=== PATIENT | female | born 1955 | race Caucasian/White ===

== ENCOUNTER 2023-04-15 08:14 | Outpatient (CLI) | payer MEDICARE, OTHER ==
[2023-04-15 14:22] LABS: BASOPHILS # (AUTO) 0.1 10^3/uL (0.0-0.1); BASOPHILS % (AUTO) 1.3 %; EOSINOPHILS # (AUTO) 0.3 10^3/uL (0.0-0.7); EOSINOPHILS % (AUTO) 4.6 %; HCT - HEMATOCRIT 40.5 % (37.0-47.0); LYMPHOCYTES # (AUTO) 1.8 10^3/uL (1.5-3.5); LYMPHOCYTES % (AUTO) 29.2 %; MEAN CORPUSCULAR HEMOGLOBIN 31.6 pg (27.0-31.0); MEAN CORPUSCULAR HGB CONC 32.1 g/dL (32.0-36.0); MEAN CORPUSCULAR VOLUME 98.3 fL (81.0-99.0); MEAN PLATELET VOLUME 9.7 fL (7.9-10.8); MONOCYTES # (AUTO) 0.6 10^3/uL (0.0-1.0); MONOCYTES % (AUTO) 10.2 %; NEUTROPHILS # (AUTO) 3.3 10^3/uL (1.5-6.6); NEUTROPHILS % (AUTO) 54.4 %; PLT - PLATELET COUNT 355 10^3/uL (130-450); RED BLOOD COUNT 4.12 10^6/uL (4.20-5.40); RED CELL DISTRIBUTION WIDTH 12.4 % (12.0-15.0); WHITE BLOOD COUNT 6.1 x10^3/uL (4.8-10.8)
[2023-04-15 16:08] LABS: ALBUMIN 4.3 g/dL (3.2-5.5); ALBUMIN/GLOBULIN RATIO 1.4 (1.0-2.2); ALKALINE PHOSPHATASE 79 IU/L (42-121); ALT ALANINE AMINOTRANSFERASE 4 IU/L (10-60); AST ASPARTATE AMINOTRANSFERASE 17 IU/L (10-42); BILIRUBIN,TOTAL 0.5 mg/dL (0.2-1.0); BUN - BLOOD UREA NITROGEN 20 mg/dL (6-20); CALCIUM 9.6 mg/dL (8.5-10.3); CARBON DIOXIDE - CO2 30 mmol/L (21-32); CHLORIDE 102 mmol/L (101-111); CHOL/HDL RATIO 3.9 (<4.4); CHOLESTEROL 210 mg/dL; CREATININE 0.8 mg/dL (0.6-1.3); GFR - MDRD 71 (>89); GLUCOSE 114 mg/dL (74-104); HDL CHOLESTEROL 54 mg/dL; LDL CHOLESTEROL,CALCULATED 128 mg/dL; LDL/HDL RATIO 2.4 (<4.4); POTASSIUM 3.9 mmol/L (3.5-4.5); SODIUM 138 mmol/L (135-145); TOTAL PROTEIN 7.3 g/dL (6.4-8.9); TRIGLYCERIDES 138 mg/dL (48-352); VLDL CHOLESTEROL 28 mg/dL
[2023-04-15 17:09] LABS: THYROID STIMULATING HORMONE 1.31 uIU/mL (0.34-5.60)
[2023-04-15 17:34] LABS: ESTIMATED AVERAGE GLUCOSE 111 mg/dL (70-100); HEMOGLOBIN A1c% 5.5 % (4.27-6.07)
== END 2023-04-15 08:15 | disposition home or self-care (01) ==
LOC: LAB.S 08:14
PROVIDERS: ATTEND Physician Assistant Medical
DX: Z13.9 Encounter for screening, unspecified (principal)
CPT/HCPCS: 36415; 80053; 80061; 83036; 83721; 84443; 85025

== ENCOUNTER 2023-12-02 13:31 | Outpatient (CLI) | payer MEDICARE, OTHER ==
--- NOTE | 2023-12-02 19:15 | Ultrasound Report ---
PROCEDURE: Extremity Soft Tissue Limited INDICATIONS: RIGHT HAND PAIN TECHNIQUE: Real-time scanning was performed of the right hand, with image documentation. COMPARISON: None. Findings and impression: At the area of clinical concern and palpable abnormality, there is a 5 x 2 x 4 mm structure with vasc ularity possibly superficial thrombophlebitis. Differential includes a soft tissue lesion. Clinical f ollowup is recommended. If there is new or worsening clinical concern, surveillance imaging could be obtained. Reviewed by: Brian Condon MD on 12/02/2023 7:13 PM PDT Approved by: Brian Condon MD on 12/02/2023 7:13 PM PDT Station ID: [id number]
== END 2023-12-02 13:32 | disposition home or self-care (01) ==
LOC: DI 13:31
PROVIDERS: ATTEND Nurse Practitioner Gerontology
DX: M79.641 Pain in right hand (principal)

== ENCOUNTER 2023-12-27 14:14 | Outpatient (CLI) | payer MEDICARE, OTHER ==
[2023-12-27] MEDS ORDERED: GADOTERATE MEGLUMINE 10 MMOL/20 ML VIAL ONE (14:32)
[2023-12-27 14:44] LABS: CREATININE 0.9 mg/dL (0.6-1.3)
--- NOTE | 2023-12-27 16:30 | MRI Report ---
Hand RT W/WO CLINICAL HISTORY: 68 years of age, Female, R HAND PAIN, 3 MM NODULE. COMPARISON: Correlated with ultrasound on 12/02/2023 Technique: Multisequence, multiplanar MRI of the right hand was performed without and with contrast. FINDINGS: Bones and cartilage: No fracture or osseous marrow edema. Cartilage throughout the imaged extremity appears intact, without focal deficit or reactive signal change in the underlying bone. Extensor tendons: Extensor tendons and sagittal bands are intact. Flexor tendons: Flexor tendons and volar plates are intact. No tendinosis, tenosynovitis or tendon te ar. Ligaments: Ulnar and radial collateral ligaments, accessory and proper, are intact at all visualized metacarpophalangeal and interphalangeal joints. Soft tissues and miscellaneous: There is a 4 mm T1 hypointense, T2 hyperintense, enhancing lesion wit hin the subcutaneous fat radial to the second metacarpal distal diaphysis (4:8). This lesion is immed iately abutting a small vasculature. IMPRESSION: 4 mm enhancing lesion within the subcutaneous fat radial to the second metacarpal distal diaphysis, i mmediately abutting a small vasculature. Overall, the appearance is nonspecific. Reviewed by: Janeth Madrid MD on 12/27/2023 4:29 PM PDT Approved by: Janeth Madrid MD on 12/27/2023 4:29 PM PDT Station ID: [id number]
[2023-12-27] MEDS: GADOTERATE MEGLUMINE 10 MMOL/20 ML VIAL IVP ONE (18:33)
== END 2023-12-27 14:15 | disposition home or self-care (01) ==
LOC: DI 14:14
PROVIDERS: ATTEND Nurse Practitioner Gerontology
DX: L98.9 Disorder of the skin and subcutaneous tissue, unspecified (principal); M79.641 Pain in right hand
CPT/HCPCS: 36415; 73220; 82565; A9575